=== PATIENT | female | born 1980 | race Caucasian/White ===

== ENCOUNTER 2020-06-28 14:30 | Outpatient (RCR) | payer BC, SELFPAY ==
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
--- NOTE | 2020-06-16 15:50 | PCPTNOTE ---
Patient no show for apt this date. Called patient and attempted to leave patient a message however mailbox was full. Unable to remind patient of next scheduled apt.
--- NOTE | 2020-06-21 14:56 | PCPTNOTE ---
Patient no show for apt this date. Called and spoke with patient. Reminded patient of policy and if she cannot make an apt to call. Reminded of next apt and patient states she cannot make that one. Transferred patient to clerical to reschedule apt.
--- NOTE | 2020-06-28 15:06 | PCPTNOTE ---
Patient no show for therapy session. Left voicemail for patient to remind of next apt and if she cannot make it to call and cancel. If she no shows for next apt all remaining apts will be cancelled. Spoke with/updated PT Chrissy Fontanez.
--- NOTE | 2020-06-30 16:05 | PCPTNOTE ---
Patient no showed for apt this date. All further apt's will be taken off the schedule.
--- NOTE | 2020-07-11 08:30 | PCPTNOTE ---
PHYSICAL THERAPY DISCHARGE 07-11-20 Attending Provider: Katrina Jefferson MD Patient:Parvin Lazaro Date of :1980 Ms. Lazaro has not returned for any further treatments since the PT evaluation on 06/28/2020, for the diagnosis of low back pain. She did not show for scheduled appointments, therefore she will be discharged at this time. The goals were not addressed. Thank you for referring Shira to [facility]. Please review, sign, date and return this discharge summary CHANTEL. I have been updated about the patient's current status and I agree with discharge from the above service at this time. Referring Physician Date
== END 2020-07-11 13:09 | disposition home or self-care (01) ==
LOC: ANHPT 14:30
PROVIDERS: PCP Family Medicine; Referring Provider Family Medicine; Visit Provider Family Medicine
DX: M54.42 Lumbago with sciatica, left side (principal)
CPT/HCPCS: 97161

== ENCOUNTER 2020-11-17 11:39 | Emergency (ER) | payer BC, SELFPAY ==
[2020-11-17 11:53] VITALS: BP 120/74; PULSE 77; RESP 18; TEMP 36.7; O2SAT 99
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
== END 2020-11-17 12:23 | disposition home or self-care (01) ==
PROVIDERS: Emergency Provider Nurse Practitioner
DX: S89.82XA Other specified injuries of left lower leg, initial encounter (principal); W50.0XXA Accidental hit or strike by another person, initial encounter
CPT/HCPCS: 99212; G0463

== ENCOUNTER 2021-01-29 10:35 | Emergency (ER) | payer BC, SELFPAY ==
[2021-01-29 10:41] VITALS: BP 141/91; PULSE 88; RESP 16; TEMP 36.1; O2SAT 100
--- NOTE | 2021-01-29 10:45 | ED.BACK ---
HPI - Back Pain/Injury General Chief Complaint: Back Pain/Injury Stated Complaint: BACK PAIN Time Seen by Provider: 01/29/21 10:45 Source: patient and RN notes reviewed Mode of arrival: ambulatory Limitations: no limitations History of Present Illness HPI Narrative: 40-year-old female presents concern for back pain for 3 days. Reports symptoms started with kidney pain. Reports urine frequency and foul-smelling urine. 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 Reports her legs feel shaky . She denies loss of bowel or bladder function, perianal anesthesia. Reports she took 2 Aleve with little relief. She denies fever, abdominal pain. She denies injury or trauma. MD elicited complaint: back pain Related Data Allergies Allergy/AdvReac Type Severity Reaction Status Date / Time No Known Allergies Allergy Verified 11/17/20 12:01 Review of Systems Review of Systems: CONSTITUTIONAL: Denies malaise, chills, sweats, or fever. CARDIOVASCULAR: Denies chest pain, palpitations, or edema. RESPIRATORY: Denies cough or dyspnea. GASTROINTESTINAL: Denies abdominal pain, nausea, vomiting, diarrhea, bloody, or mucous stools. GENITOURINARY: Denies dysuria or hematuria. Reports urine frequency and foul-smelling urine SKIN: Denies rash or itching, open skin. MUSCULOSKELETAL: Reports mid back pain. Denies myalgia. NEUROLOGIC: Denies numbness, weakness, or headache. All systems reviewed & are unremarkable except as noted in HPI and below PMFSH Family History Family History (Updated 11/17/20 @ 12:21 by SHERLYN Koenig) Other Family history non-contributory Social History Social History Gender identity (if verbalized by the patient): Female Comments At time of signature, agree with nursing past medical, surgical, social and family history. There is no relevant family history pertinent to the presenting complaint Exam Narrative: GENERAL: Well-appearing, well-nourished, and in no acute distress. HEAD: Normocephalic, atraumatic. EYES: PERRLA and EOMI. NECK: Supple. No lymphadenopathy. CHEST: Clear to auscultation. No respiratory distress. HEART: Regular rate and rhythm. Distal pulses palpable and equal, cap refill <3 seconds ABDOMEN: Soft, nontender, nondistended, normal active bowel sounds, no palpable or pulsatile masses. No CVA tenderness MUSCULOSKELETAL: Normal range of motion and strength in all extremities; 5/5 strength with hip flexion and extension, dorsiflexion and extension, knee flexion and extension, plantar flexion and extension. Normal sensation in dermatomal distributions with sensitivity to light touch and pain. Low midline back tenderness to palpation. No paraspinal tenderness. Transfers from sitting to standing. SKIN: Warm, dry, no rash. No ecchymosis, erythema, open wounds to back. NEURO: No focal deficits. Alert and oriented x3. Reflexes intact. Normal gait. PSYCH: Normal mood and affect Course Course Emergency Course: Due to patient's midline back tenderness discussed transfer to emergency room for further evaluation of back pain. Patient at this time does not wish to go to the emergency room, chooses to receive treatment at the urgent care and understands reasons to go to the emergency room if symptoms change, worsen, do not improve. Patient is aware of diagnosis, understands and agrees to treatment plan. Anticipatory guidance given. Patient agrees to follow-up as directed and is aware of reasons to seek care at the emergency department. Portions of this record may have been created with voice recognition software Vital Signs Vital signs: Vital Signs Temperature 97 F L 01/29/21 10:41 Pulse Rate 88 01/29/21 10:41 Respiratory Rate 16 01/29/21 10:41 Blood Pressure 141/91 H 01/29/21 10:41 Pulse Oximetry 100 01/29/21 10:41 Temperature 97 F L 01/29/21 10:41 Pulse Rate 88
== END 2021-01-29 11:13 | disposition home or self-care (01) ==
PROVIDERS: Emergency Provider Nurse Practitioner; PCP Family Medicine
DX: M54.50 Low back pain, unspecified (principal); R35.0 Frequency of micturition; R82.90 Unspecified abnormal findings in urine
CPT/HCPCS: 81003; 87077; 87086; 87088; 87186; 99213; G0463

== ENCOUNTER 2021-03-07 08:31 | Outpatient (RCR) | payer BC, SELFPAY | END 2021-05-22 15:01 | disposition home or self-care (01) | LOC: ANHDMC 08:31 | PROVIDERS: PCP Family Medicine; Visit Provider Family Medicine | DX: E66.9 Obesity, unspecified (principal); Z71.3 Dietary counseling and surveillance | CPT/HCPCS: 99199 ==

== ENCOUNTER 2021-08-02 19:47 | Emergency (ER) | payer OTHER, BC, SELFPAY ==
--- NOTE | ~2021-08-02 | XR_ITS ---
EXAMINATION: XR shoulder LT min 2V INDICATION: Left shoulder pain TECHNIQUE: Four views of the left shoulder are obtained on five radiographs. COMPARISON: None FINDINGS: Normal alignment. No fracture. Glenohumeral and acromioclavicular joint spaces are normal. Soft tissues are unremarkable. IMPRESSION: 1. No acute osseous abnormality. Reviewed, dictated and finalized at location F.
--- NOTE | ~2021-08-02 | CT_ITS ---
EXAMINATION: CT cervical spine wo con DATE: 08/02/2021 21:16 INDICATION: Neck pain TECHNIQUE: Computed tomography (CT) of the cervical spine was performed without intravenous contrast. The dose-length product (DLP) was 549.10 mGy-cm. Automated exposure control and iterative reconstruc tion technique were employed. COMPARISON: None FINDINGS: There is no fracture, dislocation, or subluxation. The vertebral body heights, alignment, a nd intervertebral disc spaces are normal. The paravertebral soft tissues are unremarkable. The odonto id is intact. IMPRESSION: 1. No acute osseous abnormality. Reviewed, dictated and finalized at location F.
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
--- NOTE | ~2021-08-02 | CT_ITS ---
EXAMINATION: CT brain wo con INDICATION: Headache COMPARISON: None TECHNIQUE: Standard unenhanced head CT. The dose-length product (DLP) was 605.33 mGy-cm. The mA was a djusted according to patient size. Iterative reconstruction technique was employed. FINDINGS: There is no intracranial hemorrhage, acute infarction, or abnormal mass lesion. The ventric les are normal. There is no abnormal mass effect or midline shift. The galarza-white matter differentiat ion is normal. The basal cisterns are patent. The orbits are normal. There is mild mucosal thickening of the paranasal sinuses. IMPRESSION: 1. No acute intracranial abnormality. Reviewed, dictated and finalized at location F.
[2021-08-02 19:55] VITALS: BP 129/88; PULSE 76; RESP 12; TEMP 36.3; O2SAT 100
[2021-08-02 20:01] VITALS: BP 114/77; PULSE 73; RESP 14; O2SAT 99
[2021-08-02] MEDS: ONDANSETRON INJ 4 MG/2 ML VIAL IV PUSH (20:40)
[2021-08-02] MEDS: KETOROLAC 15 MG/ML VIAL (*BKC) IV PUSH (20:40)
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
--- NOTE | 2021-08-02 20:49 | PC.NURSE ---
Pt off floor to CT scan.
[2021-08-02 22:33] VITALS: BP 103/68; PULSE 74; RESP 16; TEMP 36.6; O2SAT 99
== END 2021-08-02 22:50 | disposition home or self-care (01) ==
PROVIDERS: Emergency Provider Emergency Medicine; PCP Family Medicine
DX: S16.1XXA Strain of muscle, fascia and tendon at neck level, initial encounter (principal); V43.52XA Car driver injured in collision with other type car in traffic accident, initial encounter
CPT/HCPCS: 70450; 72125; 72128; 72131; 73030; 81025; 96374; 96375; 99284; J0131; J1885; J2405

== ENCOUNTER 2021-09-07 11:02 | Emergency (ER) | payer BC, SELFPAY ==
--- NOTE | ~2021-09-07 | XR_ITS ---
EXAMINATION: XR abdomen/kub 1V DATE: 09/07/2021 11:30 INDICATION: Right abdominal pain. Constipation. TECHNIQUE: A supine view of the abdomen on 2 radiographs was obtained. COMPARISON: None. FINDINGS: There are no dilated loops of bowel. There is a moderate volume of stool in the colon. IMPRESSION: 1. Normal bowel gas pattern. Reviewed, dictated and finalized at location A.
[2021-09-07 11:10] VITALS: BP 115/76; PULSE 81; RESP 16; TEMP 36.6; O2SAT 99
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
== END 2021-09-07 12:00 | disposition home or self-care (01) ==
PROVIDERS: Emergency Provider Nurse Practitioner Family
DX: M54.50 Low back pain, unspecified (principal)
CPT/HCPCS: 74018; 81003; 99213; G0463